=== PATIENT | female | born 2005 | race African-American/Black ===

== ENCOUNTER 2025-01-06 23:23 | Emergency (ER) | payer BC, SELFPAY ==
[2025-01-06 23:25] VITALS: BP 125/80; PULSE 77; RESP 18; TEMP 36.6; O2SAT 99; BMI 39.8
--- NOTE | 2025-01-06 23:58 | EDS_ITS ---
HPI History of Present Illness Chief Complaint: Wound Check Informant: patient and friend Narrative Narrative: Patient is a 19-year-old female who is otherwise healthy with no clinically significant medical problems. She states she had a bellybutton piercing placed in October. She states that overalls been doing well but in the last 2 days or so she has noticed swelling and pain. She states that today there was discharge from the area. She is concerned about a developing infection and therefore comes in for evaluation. PFSH PFSH Medical History no medical history no medical history Home Medications ?Medication ?Instructions ?Recorded ?Last Taken ?Type clindamycin HCl 300 mg capsule 300 mg PO 4X/DAY 7 days #28 caps 01/07/25 Unknown Rx (Cleocin HCl) Allergy/AdvReac Type Severity Reaction Status Date / Time No Known Allergies Allergy Verified 01/06/25 23:24 Family History no significant family his Surgical History no surgical history Social History Smoking Status: Never smoker ROS ROS ED Constitutional Constitutional ED: Denies chills or fever(s) ENT ENT ED: Denies sore throat Cardiovascular Cardiovascular: Denies chest pain Respiratory/Chest Respiratory/Chest: Denies cough or dyspnea Gastrointestinal Gastrointestinal: Denies abdominal pain, diarrhea, nausea or vomiting Genitourinary Genitourinary ED: Denies dysuria Musculoskeletal Musculoskeletal: Denies myalgias Integumentary Reports abscess Neurologic Neurologic: Denies headache(s) Hematologic/Lymphatic Hematologic/Lymphatic: Denies easy bleeding or easy bruising EXAM Physical Exam Const Vital Signs: 01/06/25 23:25 01/07/25 00:47 Temperature 97.8 F 97.8 F Temperature Source Temporal Pulse Rate 77 88 Respiratory Rate 18 18 Blood Pressure 125/80 H 136/79 H Blood Pressure Mean 95 98 Pulse Ox 99 99 Oxygen Delivery Method Room Air Positive well nourished, well developed and obese General Appearance ED: well developed Nutritional Appearance: obese HEENT HEENT Narrative: Normocephalic atraumatic Eyes PERRL and EOMs intact bilaterally General Eye ED: Negative for scleral icterus Neck supple Resp normal respiratory effort and clear to auscultation bilaterally Cardio regular rate and regular rhythm GI non-distended and no masses GI Narrative: Just above the umbilicus is a 1 x 1 cm area of induration and erythema consistent with abscess. There is mild pain with palpation at this site. There is no active drainage/discharge noted. No subcutaneous emphysema. No surroun ding erythema or warmth or lymphangitic streaking. Remainder of the abdominal exam is normal Auscultation: normoactive bowel sounds Palpation: soft Extremity normal to inspection Neuro oriented x3, CN's II-XII intact bilaterally and no sensory deficits noted Sensorium / Orientation: alert Motor Exam: strength 5/5 throughout Psych mental status grossly normal Skin Skin Narrative: Area of abscess along the upper portion of the umbilicus as documented above MDM MDM MDM Narrative Medical decision making narrative: Patient arrived to the ER with stable vitals. Her history and exam is consistent with an abdominal wall abscess. There is no findings to suggest surrounding cellulitis or systemic infection such as sepsis. Therefore I feel no need for laboratory studies or imaging. The patient underwent incision and drainage as documented below. Following this she is safe for discharge. Patient had the area cleaned with chlorhexidine. The area was then anesthetized using 5 mL of 2% lidocaine with epinephrine and local fashion. A #11 blade was used to make a 1 cm incision over top the area of induration. A small amount of blood and purulent material was expressed. Loculations were dissected with a needle spain. The wound was copiously irrigated with normal saline. Patient tolerated the procedure well without complication. History & Record Review Discussion w/independent historian: Patient and Friend Lab Data Attestation: I reviewed the patient's lab results. Labs: Laboratory Results - last 24 hr 01/07/25 00:16 Urine Test Negative Discharge Plan Triage Chief Complaint: Wound Check ED Provider: Caleb Castañeda Dx/Rx/DC Orders Clinical Impression: Abdominal wall abscess Instructions: ED Abscess Incision And Drainage Prescriptions: New clindamycin HCl [Cleocin HCl] 300 mg capsule 300 mg PO 4X/DAY 7 Days Qty: 28 0RF Primary Care Provider: Care Physician,No Primary Referrals: Herberth Falk MD [Med Staff - Active Staff, Family Practice] Care Physician,No Primary [Primary Care Provider, Medical] Activity Restrictions/Additional Instructions: Take the antibiotic as directed to resolve any remaining infection. If you have any further concerns or worsening symptoms please return to the ER for repeat evaluation. Use Tylenol and/or Motrin for pain control Print Language: Burkinan Disposition Disposition: Home, Self Care Discharge Date/Time: 01/07/25 00:48
[2025-01-07] MEDS: Lidocaine 2% /Epi 1:100 (20ml) 20 ML VIAL INFILT (00:21)
[2025-01-07 00:32] LABS: Internal QC Validated? YES +Cl - CLEAR BKGD; Pregnancy, Urine Negative Negative
[2025-01-07 00:33] LABS: Record Kit Lot#,Urine Preg 0000964736
[2025-01-07 00:47] VITALS: BP 136/79; PULSE 88; RESP 18; TEMP 36.6; O2SAT 99
== END 2025-01-07 00:48 | disposition home or self-care (01) ==
PROVIDERS: Emergency Provider Emergency Medicine; Visit Provider Emergency Medicine
DX: L02.211 Cutaneous abscess of abdominal wall (principal)
CPT/HCPCS: 10060; 81025; 99283